=== PATIENT | male | born 1970 | race Caucasian/White ===

== ENCOUNTER 2019-03-02 09:47 | Day surgery (SDC) | payer OTHER ==
[~2019-03-02] VITALS: Ht 165.1 cm; Wt 66.7 kg
[~2019-03-02 09:47] MED LIST: ALBU17IN INH; AUGM875T28 PO; BENA25CA2 PO; DOXY-350 PO; FAMO20TA PO; FLON1SPR; Gabapentin PO; NS 1,000 ML IV ONE; OMEP20CA3 PO; OMEP40CA2 PO; OXYC1TAB23 PO; PRED10TA2 FT; RANI1SYP PO; SIMV40TA2 PO; TRAM50TA2 PO; VENTAER INH; VIAG100T PO; VITA400C7 PO
[2019-03-02] MEDS ORDERED: PROPOFOL 500 MG/50 ML VIAL As Ordered ONE (11:22)
[2019-03-02] MEDS ORDERED: LIDOCAINE 2% INJ 100 MG/5 ML SDV (FOR ANES.) As Ordered ONE (11:26)
[2019-03-02] MEDS ORDERED: fentaNYL 100 MCG/2 ML INJECTION (J3010) As Ordered ONE (11:26)
--- NOTE | 2019-03-02 12:01 | ROOR ---
Patient Name: Jay Callaway Procedure Date: 03/02/2019 11:49 AM Date of : 1970 Age: 49 Room: [facility] Gender: Male Note Status: Finalized Procedure: Upper Endoscopy + Biopsies Indications: Heartburn, Exclusion of Moncada's esophagus Providers: Gage Reyna MD Referring MD: Maci PANCHAL [facility] Maci PANCHAL [facility], Admin. Requesting Provider: Medicines: Monitored Anesthesia Care Complications: No immediate complications. Procedure: Pre-Anesthesia Assessment: - The heart rate, respiratory rate, oxygen saturations, blood pressure, adequacy of pulmonary ventilation, and response to care were monitored throughout the procedure. The Endoscope was introduced through the mouth, and advanced to the second part of duodenum. The upper GI endoscopy was accomplished without difficulty. The patient tolerated the procedure well. Findings: The Z-line was variable and was found 38 cm from the incisors. Multiple biopsies were obtained with cold forceps for evaluation to rule out Moncada's Esophagus randomly at the gastroesophageal junction. No other significant abnormalities were identified in a careful examination of the stomach. The exam of the duodenum was otherwise normal. Impression: - Z-line variable, 38 cm from the incisors. - Multiple biopsies were obtained at the gastroesophageal junction. - The examination was otherwise normal. Recommendation: - Patient has a contact number available for emergencies. The signs and symptoms of potential delayed complications were discussed with the patient. Return to normal activities tomorrow. Written discharge instructions were provided to the patient. - High fiber diet. - Discharge patient to home. - Continue present medications. - Await pathology results. - Telephone GI clinic for pathology results in 1 week. - Return to referring physician. - The findings and recommendations were discussed with the patient's family. Gage Reyna MD Gage Reyna MD 03/02/2019 12:00:34 PM Electronically signed by Gage Reyna MD Number of Addenda: 0 Note Initiated On: 03/02/2019 11:49 AM Estimated Blood Loss: Estimated blood loss: none.
--- NOTE | 2019-03-02 12:16 | ROOR ---
Patient Name: Jay Callaway Procedure Date: 03/02/2019 11:49 AM Date of : 1970 Age: 49 Room: [facility] Gender: Male Note Status: Finalized Procedure: Total Colonoscopy to Cecum + Cold Snare Polypectomy + Hemoclip Indications: Screening for colorectal malignant neoplasm Providers: Gage Reyna MD Referring MD: Maci PANCHAL [facility] [place], [facility], Admin. Requesting Provider: Medicines: Monitored Anesthesia Care Complications: No immediate complications. Procedure: Pre-Anesthesia Assessment: - The heart rate, respiratory rate, oxygen saturations, blood pressure, adequacy of pulmonary ventilation, and response to care were monitored throughout the procedure. The Colonoscope was introduced through the anus and advanced to the cecum, identified by appendiceal orifice and ileocecal valve. The colonoscopy was performed without difficulty. The patient tolerated the procedure well. The quality of the bowel preparation was excellent. Findings: The perianal and digital rectal examinations were normal. Non-bleeding internal hemorrhoids were found during retroflexion. The hemorrhoids were small and Grade I (internal hemorrhoids that do not prolapse). A medium polyp was found in the rectum. The polyp was sessile. The polyp was removed with a cold snare. Resection and retrieval were complete. To prevent bleeding after the polypectomy, one hemostatic clip was successfully placed (MR conditional). There was no bleeding at the end of the procedure. The exam was otherwise without abnormality on direct and retroflexion views. Impression: - Non-bleeding internal hemorrhoids. - One medium polyp in the rectum, removed with a cold snare. Resected and retrieved. Clip (MR conditional) was placed. - The examination was otherwise normal on direct and retroflexion views. - The exam was otherwise normal to the cecum. Recommendation: - Patient has a contact number available for emergencies. The signs and symptoms of potential delayed complications were discussed with the patient. Return to normal activities tomorrow. Written discharge instructions were provided to the patient. - High fiber diet. - Discharge patient to home. - Continue present medications. - Await pathology results. - Telephone GI clinic for pathology results in 1 week. - Repeat colonoscopy in 3 years for surveillance based on pathology results. - Return to referring physician. - The findings and recommendations were discussed with the patient's family. Gage Reyna MD Gage Reyna MD 03/02/2019 12:15:42 PM Electronically signed by Gage Reyna MD Number of Addenda: 0 Note Initiated On: 03/02/2019 11:49 AM Estimated Blood Loss: Estimated blood loss: none.
[2019-03-02 12:35] VITALS: BP 136/78
== END 2019-03-02 12:50 | disposition home or self-care (01) ==
LOC: M OPP 09:47
PROVIDERS: ATTEND Internal Medicine Gastroenterology
DX: D12.8 Benign neoplasm of rectum (principal); K64.0 First degree hemorrhoids; K22.8 Other specified diseases of esophagus; R12 Heartburn; Z12.11 Encounter for screening for malignant neoplasm of colon
CPT/HCPCS: 43239; 45385; 88305; J3010

== ENCOUNTER → 2019-07-22 | Outpatient (REF) | payer OTHER ==
[~2019-07-22] MED LIST changes: -NS 1,000 ML IV ONE; -OMEP20CA3 PO; +OMEP20CA4 PO; -OMEP40CA2 PO; +OMEP40CA97 PO
[2019-07-22 13:05] LABS: HEMATOCRIT 46.5 % (42.0-52.0); HEMOGLOBIN 15.5 g/dl (13.5-17.5); MEAN CORPUSCULAR HEMOGLOBIN 30.5 pg (27.0-33.0); MEAN CORPUSCULAR HGB CONC 33.3 g/dl (32.0-36.5); MEAN CORPUSCULAR VOLUME 91.5 fl (80.0-96.0); PLATELET COUNT, AUTOMATED 297 10^3/uL (150-450); RED BLOOD COUNT 5.08 10^6/uL (4.30-6.10); WHITE BLOOD COUNT 6.7 10^3/uL (4.0-10.0)
[2019-07-22 13:17] LABS: ALBUMIN 3.7 GM/DL (3.2-5.2); ALT/SGPT 17 U/L (12-78); BILIRUBIN,TOTAL 0.2 MG/DL (0.2-1.0); BLOOD UREA NITROGEN 8 MG/DL (7-18); CALCIUM LEVEL 9.2 MG/DL (8.5-10.1); CARBON DIOXIDE LEVEL 25 MEQ/L (21-32); CHLORIDE LEVEL 107 MEQ/L (98-107); CREATININE FOR GFR 0.71 MG/DL (0.70-1.30); GLOMERULAR FILTRATION RATE > 60.0 (>56); GLUCOSE, FASTING 84 MG/DL (70-100); POTASSIUM SERUM 4.2 MEQ/L (3.5-5.1); SODIUM LEVEL 140 MEQ/L (136-145); TOTAL PROTEIN 8.1 GM/DL (6.4-8.2)
== END ==
LOC: M LAB REF 12:33
PROVIDERS: ATTEND Surgery
DX: T14.8XXA Other injury of unspecified body region, initial encounter (principal); X58.XXXA Exposure to other specified factors, initial encounter; Z79.51 Long term (current) use of inhaled steroids; Z79.899 Other long term (current) drug therapy
CPT/HCPCS: 80053; 85027; G0463

== ENCOUNTER → 2019-07-24 | Outpatient (CLI) | payer OTHER ==
--- NOTE | 2019-07-28 13:35 | RADONC ---
RADIATION ONCOLOGY CONSULTATION NOTE DATE: 07/24/2019 CHART NUMBER: [id number] DIAGNOSIS: Left lateral tongue cancer. STAGE: III, T3N0M0 ECOG PERFORMANCE STATUS: 0 CONSULTATION NOTE: Mr. 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 HISTORY OF PRESENT ILLNESS: The patient's actually history of his head and neck malignancies goes back to a lump in his right upper cervical lymph node chain back in the summer of 2013. A fine-needle aspiration biopsy was done and showed a poorly differentiated carcinoma. 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 The oral cavity, oropharynx and nasopharynx were coned-down and received a total dose of 6480 cGy and the ipsilateral lymph node chain received a dose of 7020 cGy. The actual lymph node was boosted and brought to a total dose of 7200 cGy. Radiation was completed on 09/13/2014. The patient apparently did well, but more recently was found to have a lesion on his left lateral tongue. A biopsy was undertaken on 04/06/2019 and found to be an invasive moderately differentiated non-keratinizing squamous cell carcinoma. Apparently, he has since undergone a left hemiglossectomy sometime in May and unfortunately I do not have the operative note at this time nor the actual pathology report. I do have the referral letter reporting that it was a stage III, T3N0M0 left tongue carcinoma. He is now being referred to see whether or not he would qualify for external beam radiation therapy. PAST MEDICAL HISTORY: The patient's past medical history is positive for his previous head and neck cancer and high doses of radiation treatments. He also had a back surgery in the past and has arthritis. ALLERGIES: The patient has NO KNOWN DRUG ALLERGIES. SOCIAL HISTORY: The patient quit smoking in the year 2017. Prior to that he had smoked 1-1/2 packs of cigarettes per day for most of his life. He drinks alcohol frequently. FAMILY HISTORY: The patient's family history is positive for mother with lung cancer. REVIEW OF SYSTEMS: The patient's review of systems is positive for some difficulty swallowing and dental problems. It is otherwise noncontributory. He does report that he had to have a partial joule removal after radiation due to the radiation side effects and radio osteonecrosis. His review of systems is negative for nausea, vomiting, fevers, chills, night sweats, diplopia, headaches, anxiety or depression, anorexia, weight loss, visual disturbances, chest pain, urinary or bowel difficulties, or neurological problems. PHYSICAL EXAMINATION: The patient is a well-developed, well-nourished white male in no acute distress. HEENT exam is normocephalic, atraumatic. Clearly he has had multiple surgeries on his jaw. He is status post tongue surgery as noted above. There is no palpable cervical, supraclavicular, infraclavicular or axillary lymphadenopathy present. His lungs are generally clear to auscultation and percussion. His heart has a regular rate and rhythm. ASSESSMENT: Unfortunately, I do not have at this time available to me his actual pathology report or operative note. Clearly this patient is not a candidate for postoperative radiation therapy. 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 He would not be able to tolerate a further dose of radiation bringing his total to close to 13 or 14,000 cGy. This is especially true if indeed this patient had a complete resection with negative margins making radiation therefore preventative in nature. Unfortunately, I do not have the actual pathology report to see whether or not the margins are clear. Although I do not believe there would be any role for systemic therapy in this patient if the margins were positive it may be robles to send him for consultation to see if systemic therapy would have any indication or be of any benefit. I do not think that is the case. Because of this we are attempting to obtain those pathology reports. In light of the fact that I cannot provide this patient with any useful treatment at this time, I have not set him up for followup in our office at the present time. I am referring him back to his head and neck surgeon at the [facility]. Once again. in summary postoperative doses to this patient would lead to excessive risk of severe breakdown of normal tissues and the doses in addition would surpass the tolerance levels of his spinal cord, bone. skin and other structures. They could lead to horrific results, and therefore, I do not believe this patient would benefit from any consideration of treatment at this time. cc: Dalia Harman MD
== END ==
LOC: M ONCR 10:16
PROVIDERS: ATTEND Radiology Radiation Oncology
DX: C02.9 Malignant neoplasm of tongue, unspecified (principal); Z87.891 Personal history of nicotine dependence; Z90.49 Acquired absence of other specified parts of digestive tract

== ENCOUNTER 2025-03-29 14:04 | Emergency (ER) | payer OTHER ==
[~2025-03-29] VITALS: Ht 167.6 cm; Wt 65.4 kg
[~2025-03-29 14:04] MED LIST changes: -DOXY-350 PO; +DOXY-440 PO; +OMEP1CAP73 PO; -OMEP20CA4 PO; +OMEP40CA4 PO; -OMEP40CA97 PO; -SIMV40TA2 PO; +SIMV40TA20 PO
[2025-03-29 15:35] VITALS: BP 105/61; TEMP 97.8; O2SAT 100
== END 2025-03-29 16:20 | disposition home or self-care (01) ==
LOC: M ED 14:04
DX: S23.41XA Sprain of ribs, initial encounter (principal); Y92.9 Unspecified place or not applicable; Y93.9 Activity, unspecified; Y99.9 Unspecified external cause status; Z79.51 Long term (current) use of inhaled steroids; Z79.899 Other long term (current) drug therapy

== ENCOUNTER → 2025-07-05 | Outpatient (CLI) | payer OTHER | LOC: M PLARAD 11:08 | PROVIDERS: ATTEND Nurse Practitioner Family | DX: C01 Malignant neoplasm of base of tongue (principal) | CPT/HCPCS: 78815; A9552 ==